=== PATIENT | male | born 2000 | race Caucasian/White ===

== ENCOUNTER 2025-04-22 08:17 | Outpatient (CLI) | payer OTHER ==
[~2025-04-22] VITALS: Ht 182.9 cm; Wt 74.8 kg
[2025-04-22] MEDS: albuterol 2.5 MG/3 ML nebule NEB ONE (09:00)
[2025-04-22 09:01] VITALS: PULSE 74; RESP 14; O2SAT 98
[2025-04-22 09:14] VITALS: PULSE 83; RESP 15
--- NOTE | 2025-04-22 10:11 | RADIOLOGY REPORT ---
EXAM: DI CHEST,TWO VIEWS CLINICAL HISTORY: SOB COMPARISON: None TECHNIQUE: Frontal and lateral view of the chest was obtained FINDINGS: Lines and Tubes: None Lungs: No focal consolidation. Pleura: No effusion. No pneumothorax. Cardiomediastinal contours: Unremarkable Bones: No acute osseous abnormality. IMPRESSION: No acute cardiopulmonary disease.
--- NOTE | 2025-04-25 14:09 | PROCEDURE NOTE - Respiratory ---
Procedure Note-Respiratory Providers to CC Copies To 1: KYUNG HARRY DO Procedure Name: This is a spirometry study dated April 22, 2025. The spirometry study was performed both before and after inhaled bronchodilator. Spirometry measurements: Both the forced vital capacity and the FEV1 measurements are normal. The FEV1 ratio is normal. The flow rate measurements are normal. After bronchodilator was administered, there is no improvement. In fact the post bronchodilator results are a bit worse than the pre bronchodilator spirometry results. Conclusion: Normal spirometry study. We have no previous studies for comparison. REGINALDO RODRIGUEZ MD Apr 25, 2025 14:09
== END 2025-04-22 23:59 | disposition home or self-care (01) ==
LOC: RT 08:17
PROVIDERS: ATTEND Chiropractor
DX: R06.02 Shortness of breath (principal)
CPT/HCPCS: 71046; 94060; 94760